=== PATIENT | male | born 2000 | race African-American/Black ===

== ENCOUNTER 2022-09-12 00:43 | Emergency (ER) | payer SELFPAY ==
[2022-09-12] MEDS ORDERED: Bacitracin 1 PK ONE (01:16)
== END 2022-09-12 01:26 | disposition home or self-care (01) ==
LOC: CSHERS 00:43
DX: S61.303A Unspecified open wound of left middle finger with damage to nail, initial encounter (principal); X58.XXXA Exposure to other specified factors, initial encounter
CPT/HCPCS: 99283